=== PATIENT | female | born 1940 | race Caucasian/White ===

== ENCOUNTER 2017-03-11 17:14 | Emergency (ER) | payer MEDICARE ==
--- NOTE | ~2017-03-11 | CR181 ---
[facility] A Service [facility] RADIOLOGY TEXT RESULTS PATIENT: REGAN JUDGE LOCATION: SED : 40 UNIT #: [id number] AGE: [address]: Mitchell Fishman MD SEX: F ORDER DR: [id number] [address] [address] [id number] MR#: [id number] Acc #: [id number] NAME: REGAN JUDGE. : 1940 SEX: F STUDY DATE/TIME: 03/11/2017 17:08 UNIT: SED ROOM: STUDY DESCRIPTION: CR Lumbar Spine 2 or 3 Views Attending Physician: Mitchell Fishman M.D. Referring Physician: Mitchell Fishman M.D. Ordering Physician: Mitchell Fishman M.D. Primary Care Physician: Penelope Wyman M.D. MEDICAL IMAGING REPORT This report is preliminary unless electronic signature is present. EXAM Lumbar spine 3 views HISTORY Low back pain and numbness in left leg for 3 days. No injury. FINDINGS 3 views of the lumbar spine demonstrate mild left lumbar curve. Mild disc space narrowing at L2-3, L3-4, L4-5. Severe disc space narrowing at L5-S1. Advanced degenerative facet arthropathy in the upper and lower lumbar spine. Minimal, grade 1 spondylolisthesis of L4 on L5. No fracture. IMPRESSION 1. No acute findings. 2. Grade 1 spondylolisthesis of L4 on L5. 3. Advanced degenerative disc space narrowing at L5-S1. 4. Mild disc space narrowing from L2-3 to L4-5. Dictated by... Sourav Flores M.D. THIS IS AN ELECTRONICALLY VERIFIED REPORT Sourav Flores M.D. at 03/12/2017 11:29 PM DFJerome/nigel TD: 03/12/2017 11:21 JOB #: [id number] MEDICAL IMAGING REPORT [facility] A Service [facility] RADIOLOGY TEXT RESULTS PATIENT: REGAN JUDGE LOCATION: [facility] : 40 UNIT #: [id number] AGE: [address]: Mitchell Fishman MD SEX: F ORDER DR: Page 1 of 1
[~2017-03-11 17:14] MED LIST: ASPIRIN81 M2 PO; BYSTOLIC5 MG PO; CALCIUM 600 +1 EACH; CALCIUM PO; FISH OIL DR 1,1 EACH PO; FLEXERIL10 MG PO; LISINOPRIL10 MG; MOTRIN600 MG PO; NEURONTIN300 MG; NEURONTIN300 MG PO; PERCOCET7.5 PO; PRAVASTATIN SOD40 MG PO; ROBAXIN500 MG PO; TETRACYCLINE; VIBRAMYCIN100 M1 PO; VICODIN 5/1 TAB 5/50 PO; VITAMIN B6 PO; VITAMIN D1000 UNIT PO
[2017-03-11 17:41] LABS: URINE SOURCE CLEAN CATCH
[2017-03-11 17:46] LABS: URINE APPEARANCE CLEAR; URINE BLOOD 1+ (NEG); URINE COLOR YELLOW; URINE GLUCOSE NEG (NORM); URINE KETONE TRACE (NEG); URINE LEUKOCYTE ESTERASE 1+ (NEG); URINE NITRATE NEG (NEG); URINE PROTEIN TRACE (NEG); URINE SPECIFIC GRAVITY >=1.030 (1.003-1.035)
[2017-03-11 17:50] LABS: MICRO INDICATED? YES; URINE BILIRUBIN NEG (NEG)
[2017-03-11 17:53] LABS: CULTURE INDICATED? YES; URINE BACTERIA 1+ (NEG); URINE SQUAMOUS EPITHELIAL CELL FEW /[HPF]; URINE WBC 50-100 /[HPF] (0-5)
[2017-03-11] MEDS ORDERED: VOLTAREN75 MG PO (18:26)
[2017-03-11] MEDS ORDERED: FLEXERIL PO (18:26)
[2017-03-11] MEDS ORDERED: MACROBID100 MG PO (18:27)
== END 2017-03-11 18:28 | disposition home or self-care (01) ==
LOC: SED 17:14
PROVIDERS: Emergency Medicine
DX: M50.30 Other cervical disc degeneration, unspecified cervical region (principal); N39.0 Urinary tract infection, site not specified
CPT/HCPCS: 72100; 81003; 87086; 96372; 99283; J1170

== ENCOUNTER 2017-05-12 14:54 | Observation (INO) | payer MEDICARE ==
--- NOTE | ~2017-05-12 | DS ---
Unit #: [id number] #: [id number] Patient: REGAN JUDGE [id number] [facility]. [address] [place], [place] [address] [id number] I MR#: [id number] NAME: REGAN JUDGE. ROOM: [facility] Age: 76 Sex: F Admission Date: 05/12/2017 : 1940 Discharge Date: 05/13/2017 Attending Physician: Sonya Jensen M.D. Primary Care Physician: Penelope Wyman M.D. DISCHARGE SUMMARY DISCHARGE DIAGNOSES 1. Pre-syncope, resolved. 2. Sinus bradycardia, resolved. 3. Cough, questionable angiotensin-converting enzyme effect. 4. Coronary artery disease status post drug-eluting stent to right coronary artery in October of 2012. 5. Hypertension. 6. Hyperlipidemia. DISCHARGE MEDICATIONS 1. Magnesium oxide 400 mg b.i.d. 2. Neurontin 300 mg t.i.d. 3. Norvasc 5 mg p.o. daily. 4. Pravastatin 80 mg p.o. at bedtime. 5. Fish oil 1,000 mg once a day. 6. Aspirin 81 mg p.o. once a day. 7. Diclofenac sodium 75 mg b.i.d. as needed for arthritis. 8. Flexeril 5 mg t.i.d. as needed for muscle spasm. 9. Macrobid 100 mg p.o. b.i.d. 10. Vitamin D 2,000 units p.o. daily. 11. Calcium 600 mg p.o. daily. 12. Vitamin B6 - 100 mg p.o. daily. HOSPITAL COURSE This is a 76-year-old female who is a patient of Dr. Adeola Nguyen with a previous medical history of coronary artery disease status post drug-eluting stent to the RCA in October of 2012. Cardiac cath at that time showed an LVEF of 70%, left main normal, mid LAD 30%, left circumflex OM-1 10% to 20%, RCA 80%. Repeat cath done December 14, 2012 showed LVEF 70%, 1+ mitral regurgitation, LAD mid 40%, left main normal, first diagonal 40% proximally and a patent stent to the RCA. She also has a history of hypertension, hyperlipidemia, baseline bradycardia and PVCs, for which she takes Bystolic, recurrent serous otitis media status post myringotomy tubes and reformed tobacco user. She had an ischemic workup done April 2016, after some shortness of air, which was negative. At that time a cardiac MRI showed an LVEF of 71%, dilated left atrium and AV sclerosis. Dobutamine stress echo, April 2016, showed no ischemia, grade 1 diastolic dysfunction, LVEF 65%, mild tricuspid regurgitation and trace mitral regurgitation. She presented to the ER per EMS after experiencing lightheadedness and feeling like she was going to pass out with a reported heart rate as low as 48 while she was grocery shopping. Her EKG was negative for ischemia. Her Bystolic was discontinued. She has had no recurrences of pre-syncope. Unit #: [id number] #: [id number] Patient: REGAN JUDGE She is now in normal sinus rhythm with her heart rate in the low 60s. She is requesting to go home. She is stable for discharge today. In addition, she has reported an ongoing cough. Her SHERRY inhibitor will be discontinued, and she will be started on Norvasc for blood pressure control. PHYSICAL EXAMINATION VITAL SIGNS: Temp 98.2, heart rate 59, respiratory rate 16, blood pressure 125/74. CHEST: Clear to auscultation. Nonlabored respirations. HEART: S1, S2. Regular rate and rhythm. ABDOMEN: Soft, nontender, with positive bowel sounds. EXTREMITIES: Pedal pulses are palpable. No pedal edema. No cyanosis. DIAGNOSTIC STUDIES LABORATORY RESULTS: Glucose 114, sodium 138, potassium 3.7, chloride 101, BUN 17, creatinine 0.7. Hemoglobin 13.1, hematocrit 40, white blood cell count 6.1, platelets 109. TSH 1.73. Troponin less than 0.03. DIAGNOSTIC IMAGING: Chest x-ray showed no acute disease. CARDIOVASCULAR: EKG showed sinus rhythm with first-degree AV block and a ventricular rate of 78 with nonspecific T wave abnormalities. DISPOSITION The patient will be discharged home today. DISCHARGE INSTRUCTIONS 1. Follow up with Dr. Adeola Nguyen, her primary seeing eye dog trainer, in 1-2 weeks. 2. Resume home diet. 3. Stop lisinopril. 4. Home medications per discharge reconciliation sheet. 5. Twenty-four Holter monitor as outpatient. Patient given prescription for Holter monitor. Dictated by... ANITA Lemus M.D. RB/db TD: 05/16/2017 08:08 JOB #: [id number] DISCHARGE SUMMARY Page 1 of 1 X X DISCHARGE SUMMARY
--- NOTE | ~2017-05-12 | CR72 ---
[facility] A Service of [facility] RADIOLOGY TEXT RESULTS PATIENT: REGAN JUDGE LOCATION: [facility] 561-01 : 40 UNIT #: [id number] AGE: [address]: Sonya Jensen MD SEX: F ORDER DR: [id number] [facility] [address] [facility] [place], [place] [address] [id number] I MR#: [id number] Acc #: [id number] NAME: REGAN JUDGE. : 1940 SEX: F STUDY DATE/TIME: 05/12/2017 UNIT: [facility] ROOM: [facility] STUDY DESCRIPTION: CR Chest Single View Portable Attending Physician: Sonya Jensen M.D. Ordering Physician: Mehran Squires M.D. Primary Care Physician: Penelope Wyman M.D. MEDICAL IMAGING REPORT This report is preliminary unless electronic signature is present EXAM Chest portable 05/12/2017 1530 hours HISTORY 76-year-old with shortness of air, syncope and acute cough today. COMPARISON 12/10/2012. FINDINGS Single portable upright view of the chest demonstrates normal heart size and stable tortuous aorta. Lungs are well expanded and clear. There is no pleural effusion or pneumothorax. IMPRESSION No acute cardiopulmonary findings. No appreciable change from 12/10/2012. Dictated by... Kassidy Dorsey M.D. THIS IS AN ELECTRONICALLY VERIFIED REPORT Kassidy Dorsey M.D. at 05/15/2017 10:35 AM GENOVEVA/nhan TD: 05/12/2017 19:59 JOB #: [id number] MEDICAL IMAGING REPORT Page 1 of 1 COPY
--- NOTE | ~2017-05-12 | EKG ---
PATIENT: REGAN JUDGE UNIT #: [id number] Ventricular Rate: 79 BPM Atrial Rate: 79 BPM P-R Interval: 278 ms QRS Duration: 112 ms Q-T Interval: 388 ms QTC Calculation(Bezet): 444 ms P [place]: 60 degrees Calculated R [place]: 69 degrees Calculated T [place]: 25 degrees Diagnosis Line: Sinus rhythm with 1st degree A-V block Diagnosis Line: Low voltage QRS Diagnosis Line: Septal infarct , age undetermined Diagnosis Line: Abnormal ECG Diagnosis Line: When compared with ECG of 08-DEC-2012 11:48, Diagnosis Line: IA interval has increased Diagnosis Line: QRS axis Shifted right Diagnosis Line: T wave inversion now evident in Inferior leads Diagnosis Line: Confirmed by DALE CHAN MD ([id number]) on Diagnosis Line: 05/14/2017 10:42:15 AM INTERPRETING MD: MOISES
--- NOTE | ~2017-05-12 | HP ---
Unit #: [id number] #: [id number] Patient: REGAN JUDGE [id number] [facility]. [place] [id number] [facility]. [place], [place] [address] [id number] MR#: [id number] NAME: REGAN JUDGE. ROOM: [facility] Age: 76 Sex: F Admission Date: 05/12/2017 : 1940 Attending Physician: Sonya Jensen M.D. Primary Care Physician: Penelope Wyman M.D. HISTORY AND PHYSICAL CHIEF COMPLAINT Dizziness. HISTORY OF PRESENT ILLNESS This is a 76-year-old female who is a patient of Dr. Adeola Nguyen with a previous medical history of coronary artery disease status post cath in October 2012 with drug-eluting stent to RCA. She also has a history of baseline bradycardia with PVCs, hypertension, hyperlipidemia, coronary artery disease status post cardiac cardiac cath in October of 2012 with drug-eluting stent placed to RCA, cardiac cath in October 2012 showed left ventricular ejection fraction 70%, normal left main, LAD mid 30%, left circumflex OM-1 10 to 20% and RCA 80%. She had an episode of shortness of breath in April of 2016 and had an ischemic workup with a negative stress test and a cardiac MRI that showed a LVEF 71% and a dilated left atrium as well as AV sclerosis. At that time, dobutamine stress echo showed grade one diastolic dysfunction, LVEF 65%, mild TR with trace MR and was negative for ischemia. She presented to the ER with complaints of an isolated incident of dizziness. She states she was shopping in the grocery store and felt kind of lightheaded. It felt like she was going to collapse but it resolved within seconds. A few minutes later, she felt very dizzy and lightheaded again so she sat down and checked her heart rate which was 48 to fifties. She called EMS and they brought her to the ER. She is on Bystolic for heart palpitations and PVCs. She states she had a similar incident of dizziness once before when her blood pressure medications were changed and her heart rate was in the fifties. She currently denies any dizziness, chest pain, chest tightness, shortness of air or palpitations. PAST MEDICAL HISTORY 1. Coronary artery disease status post cath, October 2012, with drug-eluting stent to RCA. 2. Cardiac cath, 10/2012, showed LVEF 70%, left main normal, LAD mid 30%, left circumflex OM-1 10 to 20%, RCA 80%. 3. Cath, December 14, 2012 showed LVEF 70%, 1+ mitral regurg, LAD mid 40%, patent stent in RCA, left main normal, first diagonal 40% proximally. 4. Hypertension. 5. Hyperlipidemia. 6. Former tobacco use, quit 1997. 7. Baseline bradycardia and PVCs. 8. Cardiac MRI May 03, 2016 showed LVEF 71%, dilated left atrium and AV sclerosis. 9. Dobutamine stress echo, April 2016, showed grade one diastolic Unit #: [id number] #: [id number] Patient: REGAN JUDGE dysfunction, LVEF 65%, mild TR, trace MR. Negative for ischemia. 10. Recurrent serous otitis media with tube placement, March 2017. PAST SURGICAL HISTORY 1. Breast biopsy. 2. Hernia repair. 3. Tonsillectomy. 4. Cholecystectomy, March 2017. 5. Myringotomy tube insertion, March 2016. SOCIAL HISTORY She is a former smoker, quit in 1997. She reports one glass of bourbon nightly. She denies illicit drug use. She is a retired nurse. FAMILY HISTORY Negative for premature coronary artery disease. ALLERGIES Demerol. HOME MEDICATIONS 1. Aspirin 81 mg daily. 2. Bystolic 5 mg daily. 3. Pravastatin 80 mg 'every hour of sleep' [sic]. 4. Gabapentin 300 mg three times a day. 5. Lisinopril 10 mg daily. 6. Calcium 600 mg twice a day. 7. Fish oil 1200 mg daily. 8. Vitamin D 2,000 mg twice a day. 9. Pyridoxine 100 mg daily. 10. Magnesium 400 mg daily. 11. Extra strength Tylenol two tabs p.r.n. as needed for headache or pain. 12. Nitro spray as needed for chest pain. REVIEW OF SYSTEMS Positive for lightheadedness and occasional palpitations. Positive for ear fullness. Otherwise, negative except for what was stated in the HPI. PHYSICAL EXAMINATION VITAL SIGNS: Temp 98.2. Heart rate 59. Respiratory rate 16. Blood pressure 125/74. Height 68 inches. Weight 70.9 kg. HEENT: Head is atraumatic and normocephalic. Pupils are equal and round. Mucous membranes are moist. NECK: Supple. Trachea is midline. Negative for JVD. LUNGS: Clear to auscultation. CARDIOVASCULAR: S1, S2. Regular rate and rhythm. Negative for murmurs, rubs or gallops. ABDOMEN: Soft, nontender, nondistended. EXTREMITIES: Pulses are palpable. No pedal edema. No cyanosis. NEUROLOGIC: Alert and oriented x3. The patient moves all extremities equally and follows commands without difficulty. DIAGNOSTIC STUDIES LABORATORY: Sodium 138, potassium 3.7, chloride 101, BUN 17, creatinine 0.7, glucose 113, AST 38, ALT 37, alkaline phosphatase 55. Hemoglobin 13.1, hematocrit 40, WBC count 6.1, platelets 109. TSH 1.73. Troponin less than 0.03. Urinalysis was negative. Unit #: [id number] #: [id number] Patient: REGAN JUDGE IMAGING: Chest x-ray showed no acute cardiopulmonary findings. CARDIOVASCULAR: EKG showed normal sinus rhythm with first degree AV block and nonspecific T wave abnormalities. Ventricular rate was 78. ASSESSMENT 1. Presyncope. 2. Sinus bradycardia. 3. Cough, questionable SHERRY. 4. Coronary artery disease status post drug-eluting stent to RCA in 10/2012. 5. Hypertension. 6. Hyperlipidemia. 7. Former tobacco abuse. 8. Recurrent serous otitis media status post myringotomy tubes, March 2016. PLAN 1. In light of her recurrent cough, we will discontinue lisinopril. 2. Discontinue Bystolic. 3. Outpatient 24-hour Holter monitor. 4. Start Norvasc 5 mg p.o. once a day. 5. We will discharge her home and have her follow up with Dr. Adeola Nguyen in one to two weeks. Dictated by Belia Chino APRN for Sarita eVga TD: 05/14/2017 12:57 JOB #: [id number] HISTORY AND PHYSICAL Page 1 of 1 X X HISTORY AND PHYSICAL
--- NOTE | ~2017-05-12 | EKG ---
PATIENT: REGAN JUDGE UNIT #: [id number] Ventricular Rate: 65 BPM Atrial Rate: 65 BPM P-R Interval: 284 ms QRS Duration: 122 ms Q-T Interval: 450 ms QTC Calculation(Bezet): 468 ms P [place]: 52 degrees Calculated R [place]: 61 degrees Calculated T [place]: 12 degrees Diagnosis Line: Sinus rhythm with 1st degree A-V block Diagnosis Line: Right bundle branch block Diagnosis Line: Abnormal ECG Diagnosis Line: When compared with ECG of 13-MAY-2017 05:46, Diagnosis Line: (unconfirmed) Diagnosis Line: No significant change was found Diagnosis Line: Confirmed by DALE CHAN MD ([id number]) on Diagnosis Line: 05/14/2017 11:07:04 AM INTERPRETING MD: MOISES
--- NOTE | ~2017-05-12 | EKG ---
PATIENT: REGAN JUDGE UNIT #: [id number] Ventricular Rate: 63 BPM Atrial Rate: 63 BPM P-R Interval: 288 ms QRS Duration: 126 ms Q-T Interval: 454 ms QTC Calculation(Bezet): 464 ms P [place]: 69 degrees Calculated R [place]: 64 degrees Calculated T [place]: 29 degrees Diagnosis Line: Sinus rhythm with 1st degree A-V block Diagnosis Line: Right bundle branch block Diagnosis Line: Abnormal ECG Diagnosis Line: When compared with ECG of 12-MAY-2017 15:12, Diagnosis Line: (unconfirmed) Diagnosis Line: Right bundle branch block is now Present Diagnosis Line: Confirmed by DUSTIN HOYOS, DALE ([id number]) on Diagnosis Line: 05/14/2017 10:47:17 AM INTERPRETING MD: MOISES
[~2017-05-12 14:54] MED LIST changes: +FLEXERIL PO; +MACROBID100 MG PO; +VOLTAREN75 MG PO
[2017-05-12 15:29] LABS: BASOPHIL% 0.6 % (0-2.5); EOSINOPHIL# 0.1 X10e3 (0-0.7); EOSINOPHIL% 1.9 % (0.0-7.0); HEMOGLOBIN 13.1 gm/dL (12.0-16.0); LYMPHOCYTE# 1.5 X10e3 (1.0-3.5); LYMPHOCYTE% 24.9 % (17.0-45.0); MEAN CELL VOLUME 94.1 FL (83-96); MEAN CORPUSCULAR HEMOGLOBIN 30.9 PG (28-34); MEAN CORPUSCULAR HGB CONC 32.8 g/dL (30-36); MEAN PLATELET VOLUME 7.8 FL (6.5-11.5); MONOCYTE# 0.4 X10e3 (0-1.0); MONOCYTE% 7.2 % (3.0-12.0); NEUTROPHIL% 65.4 % (40-75); PLATELET COUNT 189 X10e3 (140-420); RED BLOOD COUNT 4.25 X10e (3.90-5.30); RED CELL DISTRIBUTION WIDTH 14.8 % (11.0-15.5); WHITE BLOOD COUNT 6.1 X10e3 (4.0-10.5)
[2017-05-12 15:30] LABS: DIFF IND NO
[2017-05-12 15:52] LABS: ALBUMIN SERUM 4.7 g/dL (3.5-5.0); BILIRUBIN, DIRECT 0.1 mg/dL (0.0-0.2); BILIRUBIN,INDIRECT 0.6 mg/dL (0.0-0.9); BILIRUBIN,TOTAL 0.7 mg/dL (0.2-2.0); BUN/CREATININE RATIO 24.28; CALCIUM SERUM 9.9 mg/dL (8.4-10.2); CREATININE SERUM 0.7 mg/dL (0.6-1.4); GLOM FILT RATE Estimated 84.2 mL/min (>60); POTASSIUM 3.7 mmol/L (3.5-5.1); PROTEIN TOTAL SERUM 7.7 g/dL (6.0-8.3)
[2017-05-12 18:46] LABS: %MB 5.9 % (0.0-4.0); MB 6.1 ng/ml
[2017-05-13 00:08] LABS: %MB 5.2 % (0.0-4.0); MB 4.7 ng/ml
[2017-05-13 07:09] LABS: %MB 5.5 % (0.0-4.0); MB 4.2 ng/ml
[2017-05-13] MEDS ORDERED: NORVASC PO (11:30)
[2017-05-13] MEDS ORDERED: ZESTRIL10 M1 PO (11:36)
[2017-05-13] MEDS ORDERED: MAGNESIUM400 M1 PO (11:37)
== END 2017-05-13 13:08 | disposition home or self-care (01) ==
LOC: CED 14:54 → CEDOF 16:40 → C5B 16:40 → CED 16:40 → CEDOF 17:01 → CED 17:01 → C5B 19:34 → CEDOF 19:34 → C5B 05-13 13:08
PROVIDERS: Emergency Medicine; Internal Medicine Cardiovascular Disease
DX: R55 Syncope and collapse (principal); R00.1 Bradycardia, unspecified; I25.10 Atherosclerotic heart disease of native coronary artery without angina pectoris; Z95.5 Presence of coronary angioplasty implant and graft; I10 Essential (primary) hypertension; E78.5 Hyperlipidemia, unspecified; R05 Cough; Z87.891 Personal history of nicotine dependence; H65.90 Unspecified nonsuppurative otitis media, unspecified ear; Z79.82 Long term (current) use of aspirin; Z90.49 Acquired absence of other specified parts of digestive tract
CPT/HCPCS: 71010; 80048; 80076; 82550; 82553; 84443; 84484; 85025; 93005; 99285; G0378